=== PATIENT | female | born 1960 | race Caucasian/White ===

== ENCOUNTER 2017-12-16 09:35 | Observation (INO) | payer BC ==
[2017-12-16] MEDS ORDERED: NITROGLYCERIN OINT 1 INCH/GM PACKET TOPICAL STA (10:12)
[2017-12-16] MEDS ORDERED: ASPIRIN 81 MG PO STA (10:12)
[2017-12-16] MEDS ORDERED: SODIUM CHLORIDE 0.9% 1,000 ML IV STA (10:12)
[2017-12-16] MEDS ORDERED: ONDANSETRON 4 MG/2 ML VIAL IVP STA (10:12)
[2017-12-16] MEDS ORDERED: MORPHINE SULFATE 2 MG/ML SYRINGE IVP STA (10:12)
[2017-12-16 10:38] LABS: Basophils % (A) 1 %; Eosinophils # (A) 0.1 k/uL (0-0.7); Eosinophils % (A) 2 %; HCT 42.3 % (34.0-46.0); HGB 14.1 gm/dL (11.4-16.0); Lymphocytes # (A) 1.5 k/uL (1.0-4.8); Lymphocytes % (A) 27 %; MCH 28.3 pg (25.0-35.0); MCHC 33.3 g/dL (31.0-37.0); Mean Platelet Volume 6.9; Monocytes # (A) 0.4 k/uL (0-1.0); Monocytes % (A) 7 %; Neutrophils # (A) 3.4 k/uL (1.3-7.7); Neutrophils % (A) 62 %; Platelet Count 251 k/uL (150-450); RBC 4.98 m/uL (3.80-5.40); RDW 13.2 % (11.5-15.5); WBC 5.6 k/uL (3.8-10.6)
--- NOTE | 2017-12-16 10:46 | XR ---
EXAMINATION TYPE: XR chest 2V DATE OF EXAM: 12/16/2017 COMPARISON: NONE HISTORY: Chest pain today. TECHNIQUE: Frontal and lateral views of the chest are obtained. FINDINGS: There is no focal air space opacity, pleural effusion, or pneumothorax seen. The cardiac silhouette size is within normal limits. The osseous structures are intact. IMPRESSION: No acute process.
[2017-12-16 10:53] LABS: ALT 60 U/L (9-52); AST 37 U/L (14-36); Albumin 4.9 g/dL (3.5-5.0); Alkaline Phosphatase 68 U/L (38-126); Anion Gap 13 mmol/L; Blood Urea Nitrogen 11 mg/dL (7-17); Calcium 10.1 mg/dL (8.4-10.2); Carbon Dioxide 23 mmol/L (22-30); Chloride 104 mmol/L (98-107); Glucose 100 mg/dL (74-99); Magnesium 2.2 mg/dL (1.6-2.3); Partial Thromboplastin Time 23.1 sec (22.0-30.0); Potassium 4.7 mmol/L (3.5-5.1); Sodium 140 mmol/L (137-145); Total Bilirubin 0.5 mg/dL (0.2-1.3); Total Protein 7.7 g/dL (6.3-8.2)
[2017-12-16 11:14] LABS: Creatine Kinase 85 U/L (30-135)
[2017-12-16 11:26] LABS: Creatine Kinase MB 0.8 ng/mL (0.0-2.4); Troponin I <0.012 ng/mL (0.000-0.034)
[2017-12-16] MEDS ORDERED: MORPHINE SULFATE 2 MG/ML SYRINGE IVP PRN (12:27)
[2017-12-16] MEDS ORDERED: NITROGLYCERIN SL TABS 0.4 MG TAB SUBLINGUAL PRN (12:27)
--- NOTE | 2017-12-16 12:27 | ED ---
Chest Pain HPI - General Chief Complaint: Chest Pain Stated Complaint: Chest Pain Time Seen by Provider: 12/16/17 09:51 Source: patient Mode of arrival: ambulatory Limitations: no limitations - History of Present Illness Initial Comments: 57 years old female presents with the chest pain sharp pain off-and-on for last 3 days that time she has no pain in the other time is quite bad and she has no history of heart disease no history of firm PE or DVT past medical history is significant for hyperlipidemia and thyroid disease denies any tobacco use or heavy alcohol use. She does have a history of family history mom had a heart attack at young age dad is healthy. Denies any abdominal pain no frequency urgency dysuria no symptoms of TIA or CVA - Related Data Home Medications Medication Instructions Recorded Confirmed Ferrous Sulfate [Feosol] 325 mg PO DAILY 12/16/17 12/16/17 Levothyroxine Sodium [Synthroid] 100 mcg PO DAILY 12/16/17 12/16/17 Multivitamins, Thera [Multivitamin 1 tab PO DAILY 12/16/17 12/16/17 (formulary)] Rosuvastatin [Crestor] 20 mg PO HS 12/16/17 12/16/17 Allergies Allergy/AdvReac Type Severity Reaction Status Date / Time No Known Allergies Allergy Verified 12/16/17 10:31 Review of Systems ROS Statement: Those systems with pertinent positive or pertinent negative responses have been documented in the HPI. ROS Other: All systems not noted in ROS Statement are negative. EKG Findings - EKG Comments: EKG Findings:: EKG is a normal sinus ventricular rate is 62 IN interval is 160 5I QRS duration is 90 QT/QTc is 4:30/399 of this EKG sinus and left ax axis deviation and some T-wave inversion in lead 3 and aVR no STEMI noticed Past Medical History Past Medical History: Thyroid Disorder History of Any Multi-Drug Resistant Organisms: None Reported Past Surgical History: Tubal Ligation Additional Past Surgical History / Comment(s): thyroid rectocele Past Psychological History: No Psychological Hx Reported Smoking Status: Never smoker Past Alcohol Use History: None Reported General Exam - General Exam Comments Initial Comments: General: The patient is awake and alert, in no distress, and does not appear acutely ill. Skin: Skin is warm and dry and no rashes or lesions are noted. Eye: Pupils are equal, round and reactive to light, extra-ocular movements are intact; there is normal conjunctiva bilaterally. Ears, nose, mouth and throat: There are moist mucous membranes and no oral lesions. Neck: The neck is supple, there is no tenderness or JVD. Cardiovascular: There is a regular rate and rhythm. No murmur, rub or gallop is appreciated. Respiratory: To auscultation bilateral, no wheezing no rhonchi no distress respiratory farmer noticed Gastrointestinal: Soft, non-distended, non-tender abdomen without masses or organomegaly noted. There is no rebound or guarding present. Bowel sounds are unremarkable. Back: There is no tenderness to palpation in the midline. There is no obvious deformity. Musculoskeletal: Normal ROM, no tenderness, There is no pedal edema. There is no calf tenderness or swelling. No cords were appreciated. Neurological: CN II-XII intact, Cranial nerves III through XII are intact. There are no obvious motor or sensory deficits. Coordination appears grossly intact. Speech is normal. Psychiatric: Cooperative, appropriate mood & affect, normal judgment. Limitations: no limitations Course Vital Signs 12/16/17 12/16/17 09:40 11:43 Temperature 98.2 F Pulse Rate 63 50 L Respiratory 18 20 Rate Blood Pressure 126/86 119/69 O2 Sat by Pulse 99 96 Oximetry Lymphocytes chest pain ongoing for about 3 days versus with the exertion and she is 57 and family history is significant for heart disease or mom had a heart disease in 40s considering that she be admitted for observation and cardiology be consulted Disposition Clinical Impression: Chest pain Disposition: ADMITTED IP TO THIS HOSP Condition: Good Referrals: Trung Patrick MD [Primary Care Provider] - 1-2 days
[2017-12-16] MEDS ORDERED: ACETAMINOPHEN TAB 325 MG TAB PO PRN (14:40)
[2017-12-16] MEDS: ACETAMINOPHEN TAB 325 MG TAB PO PRN ×2 (14:49→20:54)
[2017-12-16 16:57] LABS: Creatine Kinase 60 U/L (30-135)
[2017-12-16 17:10] LABS: Creatine Kinase MB 0.6 ng/mL (0.0-2.4); Troponin I <0.012 ng/mL (0.000-0.034)
--- NOTE | 2017-12-16 19:39 | ECHOF ---
Referral Reason:cp MEASUREMENTS -------- HEIGHT: 157.5 cm WEIGHT: 83.9 kg BP: 138/77 IVSd: 1.0 cm (0.6 - 1.1) LVIDd: 4.7 cm (3.9 - 5.3) LVPWd: 1.2 cm (0.6 - 1.1) IVSs: 1.6 cm LVIDs: 3.3 cm LVPWs: 1.4 cm LA Diam: 2.9 cm (2.7 - 3.8) RVIDd: 2.8 cm (< 3.3) LAESV Index (A-L): 20.40 ml/m Ao Diam: 3.1 cm (2.0 - 3.7) AV Cusp: 2.2 cm (1.5 - 2.6) EPSS: 0.4 cm MV E Jose: 0.93 m/s MV DecT: 311 ms MV A Jose: 0.73 m/s MV E/A Ratio: 1.27 RAP: 5.00 mmHg RVSP: 18.74 mmHg MV EF SLOPE: 68.22 mm/s (70 - 150) MV EXCURSION: 15.79 mm (> 18.000) FINDINGS -------- Sinus rhythm. This was a technically good study. The left ventricular size is normal. There is borderline concentric left ventricular hypertrophy. Overall left ventricular systolic function is normal with, an EF between 55 - 60 %. The right ventricle is normal in size. Normal LA size by volume 22+/-6 ml/m2. The right atrium is normal in size. The aortic valve is trileaflet and appears structurally normal. The mitral valve is normal. Mild tricuspid regurgitation present. Right ventricular systolic pressure is normal at < 35 mmHg. There is no pulmonic regurgitation present. The aortic root size is normal. Normal inferior vena cava with normal inspiratory collapse consistent with estimated right atrial pre ssure of 5 mmHg. There is no pericardial effusion. CONCLUSIONS -------- 1. Sinus rhythm. 2. This was a technically good study. 3. The left ventricular size is normal. 4. There is borderline concentric left ventricular hypertrophy. 5. Overall left ventricular systolic function is normal with, an EF between 55 - 60 %. 6. The right ventricle is normal in size. 7. Normal LA size by volume 22+/-6 ml/m2. 8. The right atrium is normal in size. 9. The aortic valve is trileaflet and appears structurally normal. 10. The mitral valve is normal. 11. Mild tricuspid regurgitation present. 12. Right ventricular systolic pressure is normal at < 35 mmHg. 13. There is no pulmonic regurgitation present. 14. The aortic root size is normal. 15. Normal inferior vena cava with normal inspiratory collapse consistent with estimated right atrial pressure of 5 mmHg. 16. There is no pericardial effusion. BRAKE MECHANIC: Malaika Costello RDCS
[2017-12-16] MEDS ORDERED: ATORVASTATIN 40 MG TAB PO SCH ×2 (21:00)
--- NOTE | 2017-12-16 23:24 | HP ---
HISTORY AND PHYSICAL DATE OF ADMISSION: 12/16/2017 DATE OF SERVICE: 12/16/2017 PRESENTING COMPLAINT: Chest pain. HISTORY OF PRESENTING COMPLAINT: This is a very pleasant 57-year-old patient of Dr. Patrick. Chronic stable medical conditions include GERD, hyperlipidemia, hypothyroid. 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 Also had an episode 2 days ago. Today she became short of breath, dizzy, lightheaded, broke out in a sweat. Has been feeling tired for some time. Symptoms lasted for quite a while; hence decided to come in. She was admitted with a diagnosis of unstable angina. Patient's mother also has coronary artery disease. Patient has no prior cardiac history. Patient takes reflux medications intermittently and sometimes this reflux does bother her. Currently no episode. Lying flat in bed. REVIEW OF SYSTEMS: CONSTITUTIONAL: Tired. HEENT: None. RESPIRATORY: None. CARDIOVASCULAR: As above. GASTROINTESTINAL: As above. GENITOURINARY: None. MUSCULOSKELETAL: None. DERMATOLOGICAL: None. HEMATOLOGICAL: None. LYMPHATICS: None. PSYCHIATRY: None. NEUROLOGICAL: None. PAST MEDICAL HISTORY: 1. GERD. 2. Hyperlipidemia. 3. Hypothyroid. 4. Gestational diabetes. 5. Migraines. PAST SURGICAL HISTORY: 1. Adenoidectomy. 2. Tonsillectomy. 3. Tubal ligation. 4. Thyroid surgery due to goiter. 5. D&C. 6. Rectocele. SOCIAL HISTORY: . 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 No smoking. No alcohol. FAMILY HISTORY: Father had lung and pancreatic cancer, at age 60. Mother with heart disease. HOME MEDICATIONS: 1. Crestor 20 mg at bedtime. 2. Multivitamin 1 tablet p.o. daily. 3. Synthroid 100 mcg p.o. daily. 4. Iron 325 p.o. daily. ALLERGIES: NONE. PHYSICAL EXAMINATION: Temperature 98.2, pulse 63, respiration 18, blood pressure 126/86, pulse ox 99% on room air. GENERAL APPEARANCE: Well built; BMI 33.9. Lying in bed, comfortable. EYES: Pupils equal. Conjunctivae normal. HEENT: External appearance of nose and ears normal. Oral cavity normal. NECK: JVD not raised. Mass not palpable. RESPIRATORY: Effort normal. Lungs are clear. CARDIOVASCULAR: First and second sounds normal. No edema. ABDOMEN: Soft, non-tender. Liver and spleen not palpable. LYMPHATIC: No lymph node palpable in neck or axillae. PSYCHIATRY: Alert and oriented x3. Mood and affect normal. NEUROLOGICAL: Pupils equal. Cranial nerves grossly intact. Power and sensation grossly intact. INVESTIGATIONS: Lab work was reviewed and interpreted in the context of the assessment below. Relevant findings are white count 5.6, hemoglobin 14.1, potassium 4.7. BUN and creatinine are normal. AST 37, ALT 60, troponin x2 negative. EKG tracing reviewed by me shows flipped T-wave in AVR and lead III. ASSESSMENT: 1. Possible unstable angina in a patient whose cardiac risk factors include hyperlipidemia, hypothyroid and positive family history with somewhat cardiac- sounding presentation. Patient will need a stress test. 2. Gastroesophageal reflux disease, uncontrolled. Patient takes her medications intermittently. 3. Hyperlipidemia. 4. Hypothyroid. 5. Hepatitis, cause unknown. Will check for hepatic steatosis. 6. Obesity; body mass index 33.9. PLAN: Serial cardiac enzymes are in place. Patient is on aspirin. Patient will need a stress test. Will do a liver ultrasound to check for hepatic steatosis. Care was discussed with the patient. Questions were answered. MMODL / IJN: [id number] /
[2017-12-16 23:35] LABS: Creatine Kinase MB 0.6 ng/mL (0.0-2.4); Troponin I 0.016 ng/mL (0.000-0.034)
[2017-12-17 02:39] LABS: Cholesterol 273 mg/dL (<200); HDL Cholesterol 54 mg/dL (40-60); LDL Cholesterol,Calculated 190 mg/dL (0-99); Triglycerides 145 mg/dL (<150)
[2017-12-17] MEDS ORDERED: LEVOTHYROXINE 100 MCG TAB PO SCH (06:30)
[2017-12-17 08:39] VITALS: RESP 16
[2017-12-17] MEDS ORDERED: ASPIRIN 81 MG PO SCH (09:00)
[2017-12-17] MEDS ORDERED: FERROUS SULFATE 325 MG TAB PO SCH (09:00)
[2017-12-17] MEDS ORDERED: ASPIRIN 325 MG TAB PO SCH (09:00)
[2017-12-17] MEDS ORDERED: MULTIVITAMINS, THERA 1 EACH TAB PO SCH (09:00)
--- NOTE | 2017-12-17 09:13 | P.CRDCN ---
History of Present Illness History of present illness: 57-year-old female with recurrent chest discomfort going through to the back and radiation up into the left side of the neck usually with exertion. History of dyslipidemia on Crestor. No hypertension or diabetes. Normal cardiac enzymes. Normal ECG Suggest in view of her chest discomfort with exertion, consistent with angina and a history of dyslipidemia and exercise stress echo with Definity contrast will be ordered to evaluate for underlying significant coronary artery disease Please see full dictation by nurse practitioner Past Medical History Past Medical History: GERD/Reflux, Hyperlipidemia, Thyroid Disorder Additional Past Medical History / Comment(s): Gestational diabetes, hypothyroid , migraines, sinus problems, past low back pain. History of Any Multi-Drug Resistant Organisms: None Reported Past Surgical History: Adenoidectomy, Tonsillectomy, Tubal Ligation Additional Past Surgical History / Comment(s): Thyroid surgery d/t goiter, D&C, rectocele, colonoscopy. Past Anesthesia/Blood Transfusion Reactions: Postoperative Nausea & Vomiting ( PONV) Additional Past Anesthesia/Blood Transfusion Reaction / Comment(s): Difficulty waking and PONV Smoking Status: Never smoker - Past Family History Father Family Medical History: Cancer Additional Family Medical History / Comment(s): Father had lung and pancreatic cancer which he of at the age of 60yrs. Mother Family Medical History: Myocardial Infarction (UT) Additional Family Medical History / Comment(s): Mother had a UT in her 40s and CABG in her 60s. Medications and Allergies Home Medications Medication Instructions Recorded Confirmed Type Ferrous Sulfate [Feosol] 325 mg PO DAILY 12/16/17 12/16/17 History Levothyroxine Sodium [Synthroid] 100 mcg PO DAILY 12/16/17 12/16/17 History Multivitamins, Thera [Multivitamin 1 tab PO DAILY 12/16/17 12/16/17 History (formulary)] Rosuvastatin [Crestor] 20 mg PO HS 12/16/17 12/16/17 History Allergies Allergy/AdvReac Type Severity Reaction Status Date / Time No Known Allergies Allergy Verified 12/16/17 10:31 Physical Exam Vitals: Vital Signs Temp Pulse Pulse Pulse Resp BP BP 12/17/17 08:00 97.9 F 55 L 16 96/59 12/17/17 04:00 98.5 F 55 L 18 101/63 07/13/18 00:08 98.3 F 60 16 105/69 12/17/17 00:00 16 12/16/17 20:11 98.3 F 59 L 18 94/56 12/16/17 20:00 53 L 18 12/16/17 16:00 52 L 16 12/16/17 15:58 97.9 F 52 L 16 101/57 12/16/17 14:22 56 L 16 12/16/17 13:46 97.6 F 56 L 16 138/77 12/16/17 13:12 98.2 F 63 18 116/62 12/16/17 11:43 50 L 20 119/69 12/16/17 09:40 98.2 F 63 18 126/86 Pulse Ox 12/17/17 08:00 96 12/17/17 04:00 96 12/17/17 00:08 96 12/17/17 00:00 12/16/17 20:11 98 12/16/17 20:00 12/16/17 16:00 12/16/17 15:58 97 12/16/17 14:22 12/16/17 13:46 95 12/16/17 13:12 98 12/16/17 11:43 96 12/16/17 09:40 99 Intake and Output 12/16/17 12/17/17 12/17/17 22:59 06:59 14:59 Intake Total 240 Balance 240 Intake: Oral 240 Other: Voiding Method Toilet Toilet # Voids 1 1 Weight 84 kg 84 kg Results 12/16/17 10:05 12/16/17 10:05 Cardiac Enzymes 12/16/17 12/16/17 12/16/17 Range/Units 10:05 10:05 16:21 AST 37 H (14-36) U/L CK-MB (CK-2) 0.8 0.6 (0.0-2.4) ng/mL Troponin I <0.012 <0.012 (0.000-0.034) ng/mL 12/16/17 Range/Units 22:20 AST (14-36) U/L CK-MB (CK-2) 0.6 (0.0-2.4) ng/mL Troponin I 0.016 (0.000-0.034) ng/mL Coagulation 12/16/17 Range/Units 10:05 PT 10.0 (9.0-12.0) sec APTT 23.1 (22.0-30.0) sec Lipids 12/16/17 Range/Units 10:05 Triglycerides 145 (<150) mg/dL Cholesterol 273 H (<200) mg/dL HDL Cholesterol 54 (40-60) mg/dL CBC 12/16/17 Range/Units 10:05 WBC 5.6 (3.8-10.6) k/uL RBC 4.98 (3.80-5.40) m/uL Hgb 14.1 (11.4-16.0) gm/dL Hct 42.3 (34.0-46.0) % Plt Count 251 (150-450) k/uL Comprehensive Metabolic Panel 12/16/17 Range/Units 10:05 Sodium 140 (137-145) mmol/L Potassium 4.7 (3.5-5.1) mmol/L Chloride 104 (98-107) mmol/L Carbon Dioxide 23 (22-30) mmol/L BUN 11 (7-17) mg/dL Creatinine 0.63 (0.52-1.04) mg/dL Glucose 100 H (74-99) mg/dL Calcium 10.1 (8.4-10.2) mg/dL AST 37 H (14-36) U/L ALT 60 H (9-52) U/L Alkaline Phosphatase 68 (38-126) U/L Total Protein 7.7 (6.3-8.2) g/dL Albumin 4.9 (3.5-5.0) g/dL Current Medications Generic Name Dose Route Start Last Admin Trade Name Freq PRN Reason Stop Dose Admin Acetaminophen 650 mg 12/16/17 14:46 12/16/17 20:54 Tylenol Tab PO 650 mg Q6HR PRN Administration Fever and/ or Pain Aspirin 81 mg 12/17/17 09:00 Aspirin PO DAILY [facility] Atorvastatin Calcium 40 mg 12/16/17 21:00 12/16/17 20:54 Lipitor PO 40 mg HS [facility] Administration Ferrous Sulfate 325 mg 12/17/17 09:00 Feosol PO DAILY [facility] Levothyroxine Sodium 100 mcg 12/17/17 06:30 Synthroid PO DAILY@0630 [facility] Morphine Sulfate 2 mg 12/16/17 12:27 Morphine Sulfate (Inj) IVP Q5M PRN Chest Pain Multivitamins 1 each 12/17/17 09:00 Theragran PO DAILY [facility] Nitroglycerin 0.4 mg 12/16/17 12:27 Nitrostat SUBLINGUAL Q5M PRN Chest Pain Intake and Output 12/16/17 12/17/17 12/17/17 22:59 06:59 14:59 Intake Total 240 Balance 240 Intake: Oral 240 Other: Voiding Method Toilet Toilet # Voids 1 1 Weight 84 kg 84 kg 12/16/17 10:05 12/16/17 10:05
--- NOTE | 2017-12-17 09:21 | US ---
EXAMINATION TYPE: US abdomen limited DATE OF EXAM: 12/17/2017 COMPARISON: NONE CLINICAL HISTORY: incresaed LFT. EXAM MEASUREMENTS: Liver Length: 13.0 cm Gallbladder Wall: 0.2 cm CBD: 0.3 cm Right Kidney: 10.8 x 4.4 x 4.6 cm Exam done portably with sun shining in brightly and shades unable to be shut. Pancreas: Tail obscured by overlying bowel gas Liver: wnl Gallbladder: wnl Evidence for sonographic Parks's sign: no CBD: wnl Right Kidney: No hydronephrosis or masses seen IMPRESSION: No distinct abnormality seen.
[2017-12-17] MEDS: ACETAMINOPHEN TAB 325 MG TAB PO PRN (09:55)
--- NOTE | 2017-12-17 11:40 | P.CRDCN ---
History of Present Illness History of present illness: Mrs. Witt is a pleasant 57-year-old female past medical history significant for dyslipidemia, GERD, hypothyroidism and chronic low back pain. She denies history of coronary artery disease and is never seen a nail expert for any reason. She does have a family history of heart disease with her mother having a heart attack in her 40s. We have been asked to see her in consultation for chest pain. 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 Yesterday after getting to work and was walking through the halls when she felt a very sharp pain in left precordial region radiating through to her back and left shoulder blade as well as upper neck and into her left jaw. No radiation into the arm. She became acutely diaphoretic, dizzy and had palpitations. She describes her palpitations as a regular fast rapid heartbeat. The symptoms persisted for approximately one hour until she arrived to the emergency department and was given aspirin, Zofran and a Nitropatch. She denies any further symptoms of significant chest pain since admission although she says she does feel some tightening in origin at times. She has also felt similar type symptoms in the past but they have past and she never had them evaluated by a physician. This episode was much worse. EKG reveals sinus mechanism with no acute ST or T wave abnormalities noted there is isolated T-wave inversion in lead 3 which is a normal variant. Chest x-ray is negative for an acute cardiopulmonary process. Laboratory data reviewed, hemoglobin 14.1, platelets 251, d-dimer 0.67, sodium 140, potassium 4.7, creatinine 0.63, magnesium 2.2, AST 37, ALT 60, cardiac enzymes negative 3, LDL 190, HDL 54, triglycerides 145 and total cholesterol 273. Risk factors include dyslipidemia and family history with her mother having heart condition of unknown type at an early age. Review of Systems At the time of my exam: CONSTITUTIONAL: Denies fever. Denies chills. EYES: Denies blurred vision. Denies vision changes. Denies eye pain. EARS, NOSE, MOUTH & THROAT: Denies headache. Denies sore throat. Denies ear pain. CARDIOVASCULAR: Denies chest pain. Denies shortness of breath. Denies orthopnea. Denies PND. Denies palpitations. RESPIRATORY: Denies cough. GASTROINTESTINAL: Denies abdominal pain. Denies diarrhea. Denies constipation. Denies nausea. Denies vomiting. MUSCULOSKELETAL: Denies myalgias. INTEGUMENTARY: Denies pruitis. Denies rash. NEUROLOGIC: Denies numbness. Denies tingling. Denies weakness. PSYCHIATRIC: Denies anxiety. Denies depression. ENDOCRINE: Denies fatigue. Denies weight change. Denies polydipsia. Denies polyurina. GENITOURINARY: Denies burning, hematuria or urgency with micturation. HEMATOLOGIC: Denies history of anemia. Denies bleeding. Past Medical History Past Medical History: GERD/Reflux, Hyperlipidemia, Thyroid Disorder Additional Past Medical History / Comment(s): Gestational diabetes, hypothyroid , migraines, sinus problems, past low back pain. History of Any Multi-Drug Resistant Organisms: None Reported Past Surgical History: Adenoidectomy, Tonsillectomy, Tubal Ligation Additional Past Surgical History / Comment(s): Thyroid surgery d/t goiter, D&C, rectocele, colonoscopy. Past Anesthesia/Blood Transfusion Reactions: Postoperative Nausea & Vomiting ( PONV) Additional Past Anesthesia/Blood Transfusion Reaction / Comment(s): Difficulty waking and PONV Smoking Status: Never smoker - Past Family History Father Family Medical History: Cancer Additional Family Medical History / Comment(s): Father had lung and pancreatic cancer which he of at the age of 60yrs. Mother Family Medical History: Myocardial Infarction (IN) Additional Family Medical History / Comment(s): Mother had a IN in her 40s and CABG in her 60s. Medications and Allergies Home Medications Medication Instructions Recorded Confirmed Type Ferrous Sulfate [Feosol] 325 mg PO DAILY 12/16/17 12/16/17 History Levothyroxine Sodium [Synthroid] 100 mcg PO DAILY 12/16/17 12/16/17 History Multivitamins, Thera [Multivitamin 1 tab PO DAILY 12/16/17 12/16/17 History (formulary)] Rosuvastatin [Crestor] 20 mg PO HS 12/16/17 12/16/17 History Allergies Allergy/AdvReac Type Severity Reaction Status Date / Time No Known Allergies Allergy Verified 12/16/17 10:31 Physical Exam Vitals: Vital Signs Temp Pulse Pulse Resp BP BP Pulse Ox 12/17/17 04:00 98.5 F 55 L 18 101/63 96 12/17/17 00:08 98.3 F 60 16 105/69 96 12/17/17 00:00 16 12/16/17 20:11 98.3 F 59 L 18 94/56 98 12/16/17 20:00 53 L 18 12/16/17 16:00 52 L 16 12/16/17 15:58 97.9 F 52 L 16 101/57 97 12/16/17 14:22 56 L 16 12/16/17 13:46 97.6 F 56 L 16 138/77 95 12/16/17 13:12 98.2 F 63 18 116/62 98 12/16/17 11:43 50 L 20 119/69 96 12/16/17 09:40 98.2 F 63 18 126/86 99 Intake and Output 12/16/17 12/17/17 12/17/17 22:59 06:59 14:59 Intake Total 240 Balance 240 Intake: Oral 240 Other: Voiding Method Toilet Toilet # Voids 1 1 Weight 84 kg 84 kg Blood pressure 96/59 heart rate 55 afebrile maintaining oxygen saturation on room air GENERAL: This is a 57-year-old female in no apparent distress at the time of my examination. HEENT: Head is atraumatic, normocephalic. Pupils are equal, round. Sclerae anicteric. Conjunctivae are clear. Mucous membranes of the mouth are moist. Neck is supple. There is no jugular venous distention. No carotid bruit is heard. LUNGS: Clear to auscultation no wheezes, rales or rhonchi. No chest wall tenderness is noted on palpation or with deep breathing. HEART: Regular rate and rhythm without murmurs, rubs or gallops. S1 and S2 heard. ABDOMEN: Soft, nontender. Bowel sounds are heard. No organomegaly noted. EXTREMITIES: No evidence of peripheral edema and no calf tenderness noted. VASCULAR: Radial and dorsalis pedis pulses palpated, no evidence of clubbing. NEUROLOGIC: Patient is awake, alert and oriented x3. Results 12/16/17 10:05 12/16/17 10:05 Cardiac Enzymes 12/16/17 12/16/17 12/16/17 Range/Units 10:05 10:05 16:21 AST 37 H (14-36) U/L CK-MB (CK-2) 0.8 0.6 (0.0-2.4) ng/mL Troponin I <0.012 <0.012 (0.000-0.034) ng/mL 12/16/17 Range/Units 22:20 AST (14-36) U/L CK-MB (CK-2) 0.6 (0.0-2.4) ng/mL Troponin I 0.016 (0.000-0.034) ng/mL Coagulation 12/16/17 Range/Units 10:05 PT 10.0 (9.0-12.0) sec APTT 23.1 (22.0-30.0) sec Lipids 12/16/17 Range/Units 10:05 Triglycerides 145 (<150) mg/dL Cholesterol 273 H (<200) mg/dL HDL Cholesterol 54 (40-60) mg/dL CBC 12/16/17 Range/Units 10:05 WBC 5.6 (3.8-10.6) k/uL RBC 4.98 (3.80-5.40) m/uL Hgb 14.1 (11.4-16.0) gm/dL Hct 42.3 (34.0-46.0) % Plt Count 251 (150-450) k/uL Comprehensive Metabolic Panel 12/16/17 Range/Units 10:05 Sodium 140 (137-145) mmol/L Potassium 4.7 (3.5-5.1) mmol/L Chloride 104 (98-107) mmol/L Carbon Dioxide 23 (22-30) mmol/L BUN 11 (7-17) mg/dL Creatinine 0.63 (0.52-1.04) mg/dL Glucose 100 H (74-99) mg/dL Calcium 10.1 (8.4-10.2) mg/dL AST 37 H (14-36) U/L ALT 60 H (9-52) U/L Alkaline Phosphatase 68 (38-126) U/L Total Protein 7.7 (6.3-8.2) g/dL Albumin 4.9 (3.5-5.0) g/dL Current Medications Generic Name Dose Route Start Last Admin Trade Name Freq PRN Reason Stop Dose Admin Acetaminophen 650 mg 12/16/17 14:46 12/16/17 20:54 Tylenol Tab PO 650 mg Q6HR PRN Administration Fever and/ or Pain Aspirin 325 mg 12/17/17 09:00 Aspirin PO DAILY [facility] Atorvastatin Calcium 40 mg 12/16/17 21:00 12/16/17 20:54 Lipitor PO 40 mg HS SOUMYA Administration Ferrous Sulfate 325 mg 12/17/17 09:00 Feosol PO DAILY [facility] Levothyroxine Sodium 100 mcg 12/17/17 06:30 Synthroid PO DAILY@0630 SOUMYA Morphine Sulfate 2 mg 12/16/17 12:27 Morphine Sulfate (Inj) IVP Q5M PRN Chest Pain Multivitamins 1 each 12/17/17 09:00 Theragran PO DAILY [facility] Nitroglycerin 0.4 mg 12/16/17 12:27 Nitrostat SUBLINGUAL Q5M PRN Chest Pain Intake and Output 12/16/17 12/17/17 12/17/17 22:59 06:59 14:59 Intake Total 240 Balance 240 Intake: Oral 240 Other: Voiding Method Toilet Toilet # Voids 1 1 Weight 84 kg 84 kg 12/16/17 10:05 12/16/17 10:05 Assessment and Plan Assessment: ASSESSMENT Precordial chest pain, an acute coronary event has been ruled out. Dyslipidemia, uncontrolled on rosuvastatin Hypothyroidism GERD Mildly elevated d-dimer PLAN 2D echocardiogram has been reviewed and is normal. Obtain exercise stress echoardiogram to assess for stress induced ischemic changes. If stress test it normal, may consider further evaluation of elevated d-dimer per medical team. Follow up with Dr. Nichols in 3-4 weeks if stress test is normal. If abnormal we will consider coronary angiography. Thank you kindly for this consultation. Nurse Practitioner note has been reviewed, I agree with a documented findings and plan of care. Patient was seen and examined.
--- NOTE | 2017-12-17 12:42 | P.STRESS ---
- Stress Test Note Stress Test Results/Findings: Exam Performed: stress echo exercise with con Exam Date: 12/17/17 Reason for Exam: Chest Pain Height: 5 ft 2 in Weight: 84 kg Protocol: Echo Ernie Stage: 3 Duration of Exercise: 9:00 Resting Heart Rate: 51 Resting Blood Pressure: 110/64 Maximum Achieved Heart Rate: 150 Maximum Achieved Blood Pressure: 215/73 85% PMHR: 139 100% PMHR: 163 METS: 10.3 Technologist Comment: Stress Test Results/Findings: Baseline heart rate 51 beats a minute, Baseline blood pressure 110/64 mmHg Baseline telemetry ECG shows normal sinus rhythm with normal cardiac intervals Impression excessive Ernie protocol for 9 minutes achieving a peak heart rate of 150 beats a minute. Normal blood pressure response to exercise no chest pain There is no ECG evidence for ischemia. A lot of ECG artifact noted during exercise portion of the stress test. At recovery no ECG abdomen is noted no arrhythmias noted Baseline 2-D echo images showed normal LV size and systolic function without segmental wall motion abnormalities At peak exercise, there was excellent augmentation of overall LV contractility without development of any wall motion abnormalities At recovery region global LV systolic function remained normal Impression Good exercise capacity without any ECG or echocardiographic evidence for ischemia
--- NOTE | 2017-12-17 16:29 | CT ---
EXAMINATION TYPE: CT angio chest DATE OF EXAM: 12/17/2017 4:18 PM COMPARISON: None. HISTORY: Chest pain with Shortness of breath CT DLP: 455.3 mGycm Automated exposure control for dose reduction was used. CONTRAST: CTA scan of the thorax is performed with IV Contrast, patient injected with 100 mL of Isovue 370, pul monary embolism protocol. . FINDINGS: There is minimal dependent atelectasis in the dependent portion of the right lung. Lungs ot herwise clear. There is no significant axillary, internal mammary, mediastinal or hilar adenopathy. There is no evidence of pulmonary embolus. There is normal in caliber without evidence of dissection. There is no pleural or pericardial fluid Visualized portions of the upper abdomen are unremarkable. There is hypertrophic spondylosis within the dorsal spine. IMPRESSION: THIS EXAMINATION IS NEGATIVE FOR PULMONARY EMBOLUS.
[2017-12-17 16:54] VITALS: BP 145/87; PULSE 55; TEMP 98.2
--- NOTE | 2017-12-18 06:58 | DS ---
DISCHARGE SUMMARY DATE OF ADMISSION: 12/16/17 DATE OF DISCHARGE: 12/17/17 FINAL DIAGNOSES: 1. Chest pain could be esophageal spasm. 2. Gastroesophageal reflux disease, uncontrolled. 3. Hyperlipidemia. 4. Hypothyroid. 5. Obesity, BMI 33.9. HOSPITAL COURSE: This patient presented with chest pain with cardiac risk factors. Stress test was negative. Chest CTA was negative for PE. Seen by Dr. Nichols from Cardiology. Okay to be discharged. DISCHARGE MEDICATIONS: 1. Iron 325 p.o. daily. 2. Synthroid 100 mcg p.o. daily. 3. Multivitamin 1 tablet p.o. daily. 4. Crestor 20 mg q.h.s. 5. The patient to take Pepcid 20 mg [id number] b.i.d. Follow with Dr. Patrick in 2-[address] Nichols in 4 weeks. On exam: Lungs are clear. Cardiovascular: First and second sounds normal. MMODL / IJN: [id number] /
== END 2017-12-17 17:45 | disposition home or self-care (01) ==
LOC: EC 09:35 → 3OBS 12:28
PROVIDERS: ADMIT Hospitalist; ATTEND Hospitalist
DX: R07.2 Precordial pain (principal); K22.4 Dyskinesia of esophagus; K21.9 Gastro-esophageal reflux disease without esophagitis; E78.5 Hyperlipidemia, unspecified; E89.0 Postprocedural hypothyroidism; E66.9 Obesity, unspecified; Z68.33 Body mass index [BMI] 33.0-33.9, adult; R06.02 Shortness of breath; R61 Generalized hyperhidrosis; R53.83 Other fatigue; R00.2 Palpitations; R79.89 Other specified abnormal findings of blood chemistry; R42 Dizziness and giddiness; K75.9 Inflammatory liver disease, unspecified; G43.909 Migraine, unspecified, not intractable, without status migrainosus; M54.5 Low back pain; G89.29 Other chronic pain; Z79.890 Hormone replacement therapy; Z79.899 Other long term (current) drug therapy; Z79.82 Long term (current) use of aspirin; Z82.49 Family history of ischemic heart disease and other diseases of the circulatory system; Z80.0 Family history of malignant neoplasm of digestive organs; Z80.1 Family history of malignant neoplasm of trachea, bronchus and lung
CPT/HCPCS: 99285; 96374 ×2; 96361 ×4; 36415; 93005; 93306; 93351; 85379; 80061; 80053; 84443; 82550; 82553; 83735; 84484; 85025; 85610; 85730; 71046; 76705; 71275; G0378 ×2; J2405; Q9967